=== PATIENT | female | born 1950 | race Caucasian/White ===

== ENCOUNTER 2022-09-28 22:08 | Inpatient (IN) | payer MEDICAID ==
[~2022-09-28] VITALS: Ht 170.2 cm; Wt 85.7 kg
--- NOTE | 2022-09-28 22:25 | NUR ---
BIBSELF C/O FEVER AND ABD DISCOMFORT. PATIENT IS AOX4. AMBULATORY. ABLE TO MAKE NEEDS KNOWN. PLACED COMFORTABLY IN BED.
--- NOTE | 2022-09-28 22:30 | NUR ---
CHANGE ROOM ATTENDANT AT BEDSIDE
--- NOTE | 2022-09-28 22:34 | NUR ---
COVID AND INFLUENZA SWAB DONE AND SENT TO LAB
--- NOTE | 2022-09-28 22:35 | NUR ---
URINE SPECIMEN SENT TO LAB
--- NOTE | 2022-09-28 22:36 | NUR ---
BROUGHT TO CT DEPT
--- NOTE | 2022-09-28 22:51 | NUR ---
PATIENT RETURNED TO ROOM FROM CT
[2022-09-28 23:05] LABS: BASOPHILS # (AUTO) 0.1 K/uL (0.0-0.2); BASOPHILS % (AUTO) 0.5 % (0.0-2.0); EOSINOPHILS % (AUTO) 0.5 % (0.0-6.0); HEMATOCRIT 38 % (33-45); HEMOGLOBIN 12.3 g/dL (11.5-14.8); LYMPHOCYTES % (AUTO) 7.1 % (20.0-44.0); MEAN CORPUSCULAR HGB CONC 32 g/dl (31.0-36.0); MEAN CORPUSCULAR VOLUME 88 fL (82-100); MONOCYTES # (AUTO) 1.1 K/uL (0.1-1.30); MONOCYTES % (AUTO) 7.5 % (2.0-12.0); NEUTROPHILS # (AUTO) 12.3 K/uL (1.8-8.9); NEUTROPHILS % (AUTO) 84.4 % (43.0-81.0); PLATELET COUNT (AUTO) 241 K/uL (150-450); RED BLOOD CELL COUNT(AUTO) 4.37 MIL/uL (4.0-5.2); WHITE BLOOD COUNT (AUTO) 14.6 K/uL (4.3-11.0)
[2022-09-28 23:10] LABS: BILIRUBIN,URINE NEGATIVE (NEGATIVE); COLOR,URINE YELLOW (YELLOW); LEUKOCYTE ESTERASE ,URINE 1+ (NEGATIVE); NITRITE, URINE NEGATIVE (NEGATIVE); PH,URINE 5.5 (5.0-8.0); PROTEIN,URINE 1+ mg/dl (NEGATIVE); UGLUCOSE NEGATIVE (NEGATIVE)
[2022-09-28 23:26] LABS: ALANINE AMINOTRANSFERASE 121 U/L (12-78); ALBUMIN 2.5 g/dL (3.4-5.0); ALKALINE PHOSPHATASE 200 U/L (46-116); ASPARTATE AMINOTRANSFERASE 63 U/L (15-37); BILIRUBIN,DIRECT 0.3 mg/dL (0.0-0.2); BILIRUBIN,TOTAL 0.7 mg/dL (0.2-1.0); CALCIUM, SERUM 9.7 mg/dL (8.5-10.1); CARBON DIOXIDE 23 mmol/L (21-32); CHLORIDE 100 mmol/L (98-107); CREATININE 1.3 mg/dL (0.6-1.3); GLUCOSE 178 mg/dL (74-106); LIPASE 128 U/L (73-393); POTASSIUM 3.5 mmol/L (3.5-5.1); SODIUM SERUM 135 mmol/L (136-145); TOTAL PROTEIN, SERUM 7.8 g/dL (6.4-8.2); UREA NITROGEN, BLOOD 21 mg/dL (7-18)
--- NOTE | 2022-09-28 23:40 | NUR ---
US TECH AT BEDSIDE
[2022-09-28 23:44] LABS: BACTERIA,URINE 2+ /HPF (None Seen); RBC,URINE NONE SEEN /HPF (0-2)
[2022-09-28 23:45] LABS: HYALINE CASTS, URINE Few /LPF (None Seen); MUCUS,URINE Few /LPF (None Seen)
[2022-09-29 01:33] LABS: EOSINOPHILS % (MANUAL) 1 % (0-4); LYMPHOCYTES % (MANUAL) 8 % (16-48); MONOCYTES % (MANUAL) 8 % (0-11.0); NEUTROPHILS % (MANUAL) 83 (42-76)
--- NOTE | 2022-09-29 04:21 | NUR ---
RAC 20G ESTABLISHED, CONVERTED TO SALINE LOCK
[2022-09-29] MEDS ORDERED: CIPROFLOXACIN IV RTU 200 ML IV ONE (04:25)
[2022-09-29] MEDS ORDERED: FLAGYL/NS RTU 500 MG/100 ML PIGGYBACK IV ONE (04:30)
[2022-09-29] MEDS: CIPROFLOXACIN IV RTU 400 MG in PREMIX 1 EA IV SCH ×2 (04:30→16:08)
--- NOTE | 2022-09-29 04:31 | NUR ---
DR CRUZ ON THE PHONE WITH DR JARRELL, GEN SURG
[2022-09-29] MEDS ORDERED: METRONIDAZOLE 500MG/ NS 100ML 100 ML IV ONE (05:15)
[2022-09-29] MEDS ORDERED: MAG HYDROX/AL HYDROX/SIMETH 30 ML UDC PO PRN (05:30)
[2022-09-29] MEDS ORDERED: ONDANSETRON HCL/PF 4 MG/2 ML VIAL IVP PRN (05:30)
[2022-09-29] MEDS ORDERED: MORPHINE SULFATE INJ 2 MG/ML DISP.SYRIN IV PRN (05:30)
[2022-09-29] MEDS ORDERED: IV D5/0.45 NACL 1,000 ML IV PRN (05:30)
[2022-09-29] MEDS ORDERED: Z GUARD REMEDY 4 OZ OINT TP PRN (05:30)
[2022-09-29] MEDS ORDERED: MAGNESIUM HYDROXIDE 30 ML UDC PO PRN (05:30)
[2022-09-29] MEDS ORDERED: ZOSYN IVPB 3.375 G in IV D5W 50ml IV ONE (07:00)
--- NOTE | 2022-09-29 07:33 | NUR ---
REPORT GIVEN TO JILLIAN MARTÍNEZ FOR MASON
[2022-09-29 08:00] VITALS: BP 153/79; TEMP 98; O2SAT 92
--- NOTE | 2022-09-29 08:00 | NUR ---
ADMITTED PT FROM ER. PT ALERT, AND ORIENTED X 4, COOK ISLANDER SPEAKING, COOPERATIVE, ACCOMPANIED BY SON. PT AMBULATORY WITH ASSISTANCE, BPR, IV ACCESS RIGHT AC 20G. NPO AT THIS TIME, R/O ACUTE CHOLECYSTITIS, IV FLUID D5 1/2 NS AT 75ML/HR
[2022-09-29] MEDS ORDERED: PANTOPRAZOLE 40 MG VIAL IV SCH (09:00)
--- NOTE | 2022-09-29 10:27 | NUR ---
D5 1/2NS D/C. PT ON NS AT 75 ML/HR.
[2022-09-29] MEDS: IV NS 0.9% 1,000 ML IV SCH ×2 (11:27→23:51)
[2022-09-29] MEDS: ZOSYN IVPB 2.25 G in IV D5W 50ml IV SCH ×2 (12:42→18:28)
[2022-09-29] MEDS ORDERED: METO25TA4 PO (13:34)
[2022-09-29] MEDS ORDERED: CHOL100043 PO (13:34)
[2022-09-29] MEDS ORDERED: METH10TA7 PO (13:34)
[2022-09-29] MEDS ORDERED: LOSARTAN-HCTZ PO (13:34)
--- NOTE | 2022-09-29 19:03 | NUR ---
RN CLOSING NOTE PATIENT RESTING IN BED. IN NO ACUTE DISTRESS OBSERVED. RESPIRATORY EVEN AND UNLABORED ON ROOM AIR, NO SOB OR DESATURATION NOTED. SKIN IS WARM TO TOUCH KEEP CLEAN/DRY. LOWEST BED POSITION. BED ALARM IS ON AT ALL THE TIME FOR SAFETY. CALL LIGHT WITHIN REACH, WILL ENDORSE SWIM INSTRUCTOR.
--- NOTE | 2022-09-29 19:30 | NUR ---
MS RN OPENING NOTE RECEIVED PATIENT FROM AM NURSE; PATIENT AWAKE IN BED, A/O X 4, HUNGARIAN SPEAKING BUT CAN UNDERSTAND LITTLE [place], ABLE TO MAKE NEEDS KNOWN; STABLE ON ROOM AIR, BREATHING EVENLY AND NO S/S OF DISTRESS NOTED; AMBULATORY WITH ASSISTANCE; WITH IV ACCESS AT RIGHT AC G#20 RUNNING WITH NORMAL SALINE AT 45 ML/HR; ENCOURAGED VERBALIZATION OF NEEDS; SAFETY MEASURES IMPLEMENTED, BED LOCKED IN LOWEST POSITION, SIDE RAILS UP X 2, CALL LIGHT AND TABLE WITHIN REACH, ADVISED TO USE CALL LIGHT IF NEEDS ANYTHING; WILL CONTINUE TO MONITOR THROUGHOUT SHIFT
[2022-09-29 20:00] VITALS: BP 115/64; TEMP 98.8; O2SAT 99
[2022-09-30] MEDS: ZOSYN IVPB 2.25 G in IV D5W 50ml IV SCH ×2 (00:35→06:25)
[2022-09-30 04:00] VITALS: BP 123/62; TEMP 98.5; O2SAT 100
[2022-09-30 05:56] LABS: BASOPHILS % (AUTO) 0.2 % (0.0-2.0); HEMATOCRIT 32 % (33-45); HEMOGLOBIN 10.7 g/dL (11.5-14.8); LYMPHOCYTES # (AUTO) 1.2 K/uL (0.8-4.8); LYMPHOCYTES % (AUTO) 8.1 % (20.0-44.0); MEAN CORPUSCULAR HGB CONC 34 g/dl (31.0-36.0); MEAN CORPUSCULAR VOLUME 86 fL (82-100); MONOCYTES # (AUTO) 2.2 K/uL (0.1-1.30); MONOCYTES % (AUTO) 14.6 % (2.0-12.0); NEUTROPHILS # (AUTO) 11.5 K/uL (1.8-8.9); NEUTROPHILS % (AUTO) 77.1 % (43.0-81.0); PLATELET COUNT (AUTO) 229 K/uL (150-450)
[2022-09-30 06:19] LABS: BILIRUBIN,DIRECT 0.5 mg/dL (0.0-0.2); BILIRUBIN,TOTAL 1.3 mg/dL (0.2-1.0); CALCIUM, SERUM 8.1 mg/dL (8.5-10.1); PHOSPHORUS 2.5 mg/dL (2.5-4.9); POTASSIUM 3.3 mmol/L (3.5-5.1); TOTAL PROTEIN, SERUM 6.5 g/dL (6.4-8.2)
--- NOTE | 2022-09-30 06:49 | NUR ---
MS RN CLOSING NOTE PATIENT RESTING IN BED, A/O X 4, BRITISH SPEAKING BUT CAN UNDERSTAND LITTLE INDONESIAN, ABLE TO MAKE NEEDS KNOWN; STABLE ON ROOM AIR, BREATHING EVENLY AND NO S/S OF DISTRESS NOTED; AMBULATORY WITH ASSISTANCE; WITH IV ACCESS AT RIGHT AC G#20 RUNNING WITH NORMAL SALINE AT 75 ML/HR; ADMINISTERED MEDICATIONS PRESCRIBED; NEEDS ATTENDED; NO COMPLAINTS OF PAIN AND DISCOMFORT AT THIS TIME; SAFETY MEASURES IMPLEMENTED, BED LOCKED IN LOWEST POSITION, SIDE RAILS UP X 2, CALL LIGHT AND TABLE WITHIN REACH, ADVISED TO USE CALL LIGHT IF NEEDED; WILL ENDORSE TO AM NURSE FOR [place].
--- NOTE | 2022-09-30 07:00 | NUR ---
WOOD CASKET ASSEMBLER OPENING NOTE PATIENT AWAKE ,ALERT AND ORIENTED X3. DENIES PAIN AT PRESENT, 02 SAT IN ROOM AIR 95%, NO S/S OF RESPIRATORY DISTRESS NOTED. IV ACCESS TO RIGHT AC G#20 INFUSING NS AT 45ML/HR. MOVE ALL EXT. WITHOUT DIFFICULTY. SAFETY MEASURES IN PLACE: BED LOCKED TO THE LOWEST POSITION, CALL LIGHT AND TABLE WITHIN REACH. CONT. TO MONITOR
[2022-09-30] MEDS: PANTOPRAZOLE 40 MG/PACK PACK PO SCH (08:49)
[2022-09-30] MEDS ORDERED: POTASSIUM CHLORIDE 20 MEQ POWDER PACKET PO ONE (11:00)
[2022-09-30] MEDS: CEFTRIAXONE 1 G in IV D5W 50 ML IV SCH (11:29)
[2022-09-30 12:00] VITALS: BP 133/71; TEMP 98.5; O2SAT 100
[2022-09-30] MEDS: IV NS 0.9% 1,000 ML IV SCH (13:26)
--- NOTE | 2022-09-30 18:45 | NUR ---
FABRIC NORMALIZER CLOSING NOTE PATIENT AWAKE, ALERT AND ORIENTED X4. DENIES PAIN, ON ROOM AIR 96% SAT, NO RESPIRATORY DISTRESS NOTED. IV AT RAC INTACT INFUSING NS AT 75ML/HR. AMBULATORY, GAIT STEADY NOTED. SAFETY MEASURES IN PLACE, BED LOCKED TO THE LOWEST POSITION, CALL LIGHT AND TABLE WITHIN REACH. I WILL ENDORSE TO THE FOLLOWING NURSE FOR CONT. OF CARE.
--- NOTE | 2022-09-30 19:50 | NUR ---
MS RN OPENING NOTE RECEIVED PATIENT FROM AM NURSE; PATIENT AWAKE IN BED, A/O X 4, ANDORRAN SPEAKING BUT CAN UNDERSTAND LITTLE [place], ABLE TO MAKE NEEDS KNOWN; STABLE ON ROOM AIR, BREATHING EVENLY AND NO S/S OF DISTRESS NOTED; AMBULATORY WITH ASSISTANCE; WITH IV ACCESS AT RIGHT AC G#20 RUNNING WITH NORMAL SALINE AT 45 ML/HR; ENCOURAGED VERBALIZATION OF NEEDS; SAFETY MEASURES IMPLEMENTED, BED LOCKED IN LOWEST POSITION, SIDE RAILS UP X 2, CALL LIGHT AND TABLE WITHIN REACH, ADVISED TO USE CALL LIGHT IF NEEDS ANYTHING; WILL CONTINUE TO MONITOR THROUGHOUT SHIFT
[2022-09-30 20:00] VITALS: BP 137/67; TEMP 98.6; O2SAT 100
[2022-10-01] MEDS: ZOLPIDEM TARTRATE 5 MG TABLET PO PRN (01:00)
[2022-10-01] MEDS: ACETAMINOPHEN 325 MG TABLET PO PRN ×2 (01:17→19:30)
--- NOTE | 2022-10-01 01:22 | NUR ---
RN NOTES UPON ROUNDS PATIENT IS WARM TO TOUCH AND WITH TEMPERATURE OF 101.4 TYLENOL 650 MG GIVEN. WILL CONTINUE TO MONITOR
[2022-10-01 04:00] VITALS: BP 113/64; TEMP 97.8; O2SAT 100
[2022-10-01] MEDS: IV NS 0.9% 1,000 ML IV SCH ×2 (04:59→15:28)
--- NOTE | 2022-10-01 06:35 | NUR ---
MS RN CLOSING NOTE PATIENT RESTING IN BED, A/O X 4, ITALIAN SPEAKING BUT CAN UNDERSTAND LITTLE WELSH, ABLE TO MAKE NEEDS KNOWN; STABLE ON ROOM AIR, BREATHING EVENLY AND NO S/S OF DISTRESS NOTED; AMBULATORY WITH ASSISTANCE; WITH IV ACCESS AT RIGHT AC G#20 RUNNING WITH NORMAL SALINE AT 75 ML/HR; ADMINISTERED MEDICATIONS PRESCRIBED; NEEDS ATTENDED; NO COMPLAINTS OF PAIN AND DISCOMFORT AT THIS TIME; SAFETY MEASURES IMPLEMENTED,PM CARE RENDERED, BED LOCKED IN LOWEST POSITION, SIDE RAILS UP X 2, CALL LIGHT AND TABLE WITHIN REACH, ADVISED TO USE CALL LIGHT IF NEEDED; WILL ENDORSE TO AM NURSE FOR [place].
[2022-10-01 07:47] LABS: BASOPHILS % (AUTO) 0.1 % (0.0-2.0); EOSINOPHILS % (AUTO) 0.1 % (0.0-6.0); HEMATOCRIT 33 % (33-45); HEMOGLOBIN 10.8 g/dL (11.5-14.8); LYMPHOCYTES # (AUTO) 1.3 K/uL (0.8-4.8); LYMPHOCYTES % (AUTO) 9.6 % (20.0-44.0); MEAN CORPUSCULAR HGB CONC 32 g/dl (31.0-36.0); MEAN CORPUSCULAR VOLUME 88 fL (82-100); MONOCYTES # (AUTO) 1.3 K/uL (0.1-1.30); MONOCYTES % (AUTO) 9.7 % (2.0-12.0); NEUTROPHILS # (AUTO) 10.8 K/uL (1.8-8.9); NEUTROPHILS % (AUTO) 80.5 % (43.0-81.0); PLATELET COUNT (AUTO) 210 K/uL (150-450); RED BLOOD CELL COUNT(AUTO) 3.82 MIL/uL (4.0-5.2); WHITE BLOOD COUNT (AUTO) 13.4 K/uL (4.3-11.0)
[2022-10-01 07:56] LABS: POTASSIUM 3.8 mmol/L (3.5-5.1)
--- NOTE | 2022-10-01 08:19 | NUR ---
MS RN OPENING NOTE Received patient in bed, awake. A/O x 4, able to make needs known. On room air, tolerating well. IV access in the RAC #20g with ongoing NS at 75ml/hr, infusing well. Safety measures maintained: bed in lowest locked position, side rails up x 2, call light and tray table within easy reach. Will continue to monitor.
[2022-10-01 08:26] LABS: ALANINE AMINOTRANSFERASE 69 U/L (12-78); ALBUMIN 1.9 g/dL (3.4-5.0); ALKALINE PHOSPHATASE 123 U/L (46-116); ASPARTATE AMINOTRANSFERASE 47 U/L (15-37); BILIRUBIN,DIRECT 0.5 mg/dL (0.0-0.2); BILIRUBIN,TOTAL 1.2 mg/dL (0.2-1.0); CALCIUM, SERUM 8.1 mg/dL (8.5-10.1); CARBON DIOXIDE 26 mmol/L (21-32); CHLORIDE 105 mmol/L (98-107); CREATININE 0.9 mg/dL (0.6-1.3); GLUCOSE 123 mg/dL (74-106); MAGNESIUM 2.2 mg/dL (1.8-2.4); POTASSIUM 3.8 mmol/L (3.5-5.1); SODIUM SERUM 138 mmol/L (136-145); TOTAL PROTEIN, SERUM 6.6 g/dL (6.4-8.2); UREA NITROGEN, BLOOD 12 mg/dL (7-18)
[2022-10-01] MEDS: PANTOPRAZOLE 40 MG/PACK PACK PO SCH (09:23)
[2022-10-01 12:00] VITALS: BP 127/71; TEMP 98.3; O2SAT 96
[2022-10-01] MEDS: CEFTRIAXONE 1 G in IV D5W 50 ML IV SCH (12:07)
--- NOTE | 2022-10-01 18:53 | NUR ---
MS RN CLOSING NOTE Patient resting in bed, with relative at bedside. A/O x 4, no c/o pain/discomfort within the shift. On room air, tolerating well. IV access in the RAC #20g with ongoing NS at 75ml/hr, infusing well. Needs attended. Safety measures maintained: bed in lowest locked position, side rails up x 2, call light and tray table within easy reach. Will endorse rosalia to shift commander.
--- NOTE | 2022-10-01 19:35 | NUR ---
MS RN OPENING NOTE RECEIVED PATIENT IN BED, WITH HOB ELEVATED, ALERT AND ORIENTED X4, WITH FAMILY AT BEDSIDE. AFEBRILE AND NOT IN ANY FORM OF ACUTE DISTRESS. BREATHING EVEN AND NON LABORED. WITH IV ACCESS ON RAC 20G RUNNING WITH NS AT 75ML/HR. S/E BY SENIOR TECHNICAL MANAGER MARCELO AND ORDERED TO D/C IV FLUIDS, ORDER NOTED AND CARRIED OUT. PATIENT ALSO WAS GIVEN TYLENOL FOR HEADACHE 05/23. SAFETY MEASURES IN PLACE. KEPT BED IN LOCKED AND IN LOW POSITION. SIDE RAILS UP X2. ADVISED TO USE THE CALL LIGHT WHEN IN NEED OF ASSISTANCE.
[2022-10-01 20:00] VITALS: BP 121/77; TEMP 98.5; O2SAT 95
[2022-10-01] MEDS ORDERED: IBUPROFEN 400 MG TABLET PO ONE (20:00)
[2022-10-01] MEDS ORDERED: ZOLPIDEM TARTRATE 5 MG TABLET PO ONE (22:00)
[2022-10-02 04:00] VITALS: BP 129/67; TEMP 97.7; O2SAT 97
[2022-10-02 05:52] LABS: BASOPHILS % (AUTO) 0.3 % (0.0-2.0); EOSINOPHILS % (AUTO) 0.5 % (0.0-6.0); HEMATOCRIT 33 % (33-45); HEMOGLOBIN 10.8 g/dL (11.5-14.8); LYMPHOCYTES # (AUTO) 1.2 K/uL (0.8-4.8); LYMPHOCYTES % (AUTO) 9.7 % (20.0-44.0); MEAN CORPUSCULAR HGB CONC 33 g/dl (31.0-36.0); MEAN CORPUSCULAR VOLUME 88 fL (82-100); MONOCYTES # (AUTO) 1.1 K/uL (0.1-1.30); MONOCYTES % (AUTO) 8.3 % (2.0-12.0); NEUTROPHILS # (AUTO) 10.3 K/uL (1.8-8.9); NEUTROPHILS % (AUTO) 81.2 % (43.0-81.0); PLATELET COUNT (AUTO) 209 K/uL (150-450); RED BLOOD CELL COUNT(AUTO) 3.75 MIL/uL (4.0-5.2); WHITE BLOOD COUNT (AUTO) 12.6 K/uL (4.3-11.0)
[2022-10-02 06:27] LABS: ALBUMIN 1.9 g/dL (3.4-5.0); BILIRUBIN,DIRECT 0.4 mg/dL (0.0-0.2); BILIRUBIN,TOTAL 1.1 mg/dL (0.2-1.0); CALCIUM, SERUM 8.5 mg/dL (8.5-10.1); CREATININE 0.9 mg/dL (0.6-1.3); MAGNESIUM 2.4 mg/dL (1.8-2.4); PHOSPHORUS 3.1 mg/dL (2.5-4.9); POTASSIUM 3.3 mmol/L (3.5-5.1); TOTAL PROTEIN, SERUM 6.7 g/dL (6.4-8.2)
--- NOTE | 2022-10-02 06:30 | NUR ---
MS RN CLOSING NOTE PATIENT IN BED, WITH HOB ELEVATED, ALSEEP BUT EASY TO AROUSE AND RESPONSIVE. ABLE TO MAKE NEEDS KNOWN. AFEBRILE AND NOT IN ANY FORM OF ACUTE DISTRESS. BREATHING EVEN AND NON LABORED. WITH IV ACCESS ON RAC 20G -SL. MEDICATED ORDERED. SAFETY MEASURES IN PLACE. KEPT BED IN LOCKED AND IN LOW POSITION. SIDE RAILS UP X2. ADVISED TO USE THE CALL LIGHT WHEN IN NEED OF ASSISTANCE. ALL NURSING NEEDS ATTENDED. ENDORSED TO INCOMING SHIFT FOR CONTINUITY OF CARE.
--- NOTE | 2022-10-02 07:00 | NUR ---
RN OPENING NOTE RECEIVED PATIENT IN BED, ALERT AND ORIENTED X4, BREATHING EVEN,ON RA, NO SOB, IV ACCESS RAC. SAFETY MEASURES IN PLACE. KEPT BED IN LOCKED AND IN LOW POSITION. SIDE RAILS UP X2. CALL LIGHT WITHIN REACH, WILL CONTINUE TO MONITOR.
[2022-10-02] MEDS: PANTOPRAZOLE 40 MG/PACK PACK PO SCH (08:01)
[2022-10-02] MEDS ORDERED: POTASSIUM CHLORIDE 20 MEQ TAB.PRT.SR PO SCH (10:00)
[2022-10-02] MEDS: CEFTRIAXONE 1 G in IV D5W 50 ML IV SCH (11:35)
[2022-10-02 12:00] VITALS: BP 135/60; TEMP 98.5; O2SAT 99
[2022-10-02] MEDS ORDERED: FUROSEMIDE 40 MG/4 ML VIAL IV ONE (12:00)
[2022-10-02] MEDS: METHIMAZOLE (5MG) 5 MG TABLET PO SCH (16:25)
--- NOTE | 2022-10-02 19:00 | NUR ---
TURNTABLE WORKER OPENING NOTE RECEIVED PATIENT IN BED, WITH HOB ELEVATED, ALERT AND ORIENTED X4, WITH FAMILY AT BEDSIDE. AFEBRILE AND NOT IN ANY FORM OF ACUTE DISTRESS. BREATHING EVEN AND NON LABORED. WITH IV ACCESS ON RAC 20G, SAFETY MEASURES IN PLACE. KEPT BED IN LOCKED AND IN LOW POSITION. SIDE RAILS UP X2. ADVISED TO USE THE CALL LIGHT WHEN IN NEED OF ASSISTANCE.
[2022-10-02] MEDS: ACETAMINOPHEN 325 MG TABLET PO PRN (19:01)
--- NOTE | 2022-10-02 19:18 | NUR ---
RN CLOSING NOTE PATIENT IN BED, ALERT AND ORIENTED X4, FAMILY AT BEDSIDE. BREATHING EVEN,ON RA, NO SOB, IV ACCESS RAC. SAFETY MEASURES IN PLACE. KEPT BED IN LOCKED AND IN LOW POSITION. SIDE RAILS UP X2. CALL LIGHT WITHIN REACH, WILL ENDORSE TO THE FORMULATOR NURSE FOR MASON.
[2022-10-02 20:00] VITALS: BP 124/69; TEMP 101.4; O2SAT 95
--- NOTE | 2022-10-02 21:00 | NUR ---
Urine sample collected for urine cx via clean catch method
[2022-10-02] MEDS: PIPERACILLIN /TAZOBACTAM 3.375 G in IV D5W 100 ML IV SCH (21:43)
[2022-10-02] MEDS: METOPROLOL SUCCINATE 25 MG TAB.SR.24H PO SCH (21:54)
[2022-10-03] VITALS: BP 124/69; TEMP 98.9; O2SAT 95
[2022-10-03] MEDS ORDERED: PIPERACILLIN /TAZOBACTAM 3.375 G in IV D5W 50 ML IV SCH ×2
[2022-10-03 04:00] VITALS: BP 120/70; TEMP 98.9; O2SAT 96
[2022-10-03] MEDS: PIPERACILLIN /TAZOBACTAM 3.375 G in IV D5W 100 ML IV SCH ×3 (05:22→21:40)
[2022-10-03] MEDS: ACETAMINOPHEN 325 MG TABLET PO PRN ×2 (05:45→20:23)
[2022-10-03 05:51] LABS: BASOPHILS % (AUTO) 0.1 % (0.0-2.0); EOSINOPHILS % (AUTO) 0.1 % (0.0-6.0); HEMATOCRIT 30 % (33-45); HEMOGLOBIN 9.8 g/dL (11.5-14.8); LYMPHOCYTES # (AUTO) 0.9 K/uL (0.8-4.8); LYMPHOCYTES % (AUTO) 8.2 % (20.0-44.0); MEAN CORPUSCULAR HGB CONC 33 g/dl (31.0-36.0); MEAN CORPUSCULAR VOLUME 87 fL (82-100); MONOCYTES # (AUTO) 0.9 K/uL (0.1-1.30); MONOCYTES % (AUTO) 8.1 % (2.0-12.0); NEUTROPHILS # (AUTO) 9.3 K/uL (1.8-8.9); NEUTROPHILS % (AUTO) 83.5 % (43.0-81.0); PLATELET COUNT (AUTO) 282 K/uL (150-450); RED BLOOD CELL COUNT(AUTO) 3.43 MIL/uL (4.0-5.2); WHITE BLOOD COUNT (AUTO) 11.2 K/uL (4.3-11.0)
[2022-10-03 06:23] LABS: ALBUMIN 1.8 g/dL (3.4-5.0); BILIRUBIN,TOTAL 0.8 mg/dL (0.2-1.0); CALCIUM, SERUM 8.3 mg/dL (8.5-10.1); CREATININE 0.8 mg/dL (0.6-1.3); PHOSPHORUS 2.8 mg/dL (2.5-4.9); POTASSIUM 3.6 mmol/L (3.5-5.1); TOTAL PROTEIN, SERUM 6.4 g/dL (6.4-8.2)
--- NOTE | 2022-10-03 06:38 | NUR ---
EDUCATIONAL SIGN LANGUAGE INTERPRETER CLOSING NOTE PATIENT IN BED, ALERT AND ORIENTED X4. BREATHING EVEN,ON RA, NO SOB, IV ACCESS RAC. ALL DUE MEDS GIVEN PER MD ORDERS TOLERATED WELL, ALL BASIC NEEDS MET AND ANTICIPATED, SAFETY MEASURES IN PLACE. KEPT BED IN LOCKED AND IN LOW POSITION. SIDE RAILS UP X2. CALL LIGHT WITHIN REACH, WILL CONTINUE TO MONITOR
--- NOTE | 2022-10-03 07:05 | NUR ---
RN OPENING NOTE RECEIVED PATIENT IN BED, ASLEEP, BREATHING EVEN,ON RA, NO SOB, IV ACCESS RAC. SAFETY MEASURES IN PLACE. KEPT BED IN LOCKED AND IN LOW POSITION. SIDE RAILS UP X2. CALL LIGHT WITHIN REACH, WILL CONTINUE TO MONITOR.
[2022-10-03 08:00] VITALS: BP 132/70; TEMP 98.7; O2SAT 96
[2022-10-03] MEDS: METHIMAZOLE (5MG) 5 MG TABLET PO SCH (09:07)
[2022-10-03] MEDS: LOSARTAN POTASSIUM 50 MG TABLET PO SCH (09:07)
[2022-10-03] MEDS: CHOLECALCIFEROL (VITAMIN D 3) 400 UNIT TABLET PO SCH (09:07)
[2022-10-03] MEDS: PANTOPRAZOLE 40 MG/PACK PACK PO SCH (09:07)
[2022-10-03] MEDS: PROSOURCE / PROSTAT (PYXIS) 30 ML UDC PO SCH ×3 (09:08→16:03)
[2022-10-03 09:31] LABS: THYROID STIMULATING HORMONE 0.11 uIU/mL (0.358-3.74)
[2022-10-03] MEDS ORDERED: LACTULOSE 10 G/15 ML UDC (PYXIS) PO ONE (12:00)
[2022-10-03] MEDS ORDERED: NA PHOS,M-B/NA PHOS,DI-BA 1 EA ENEMA RC PRN (12:00)
[2022-10-03] MEDS: SORBITOL SOLUTION 70% 30 ML SOLUTION PO SCH (12:57)
[2022-10-03 16:00] VITALS: BP 117/67; TEMP 98.9; O2SAT 96
--- NOTE | 2022-10-03 19:09 | NUR ---
RN CLOSING NOTE PATIENT IN BED, ALERT AND ORIENTED X4. BREATHING EVEN,ON RA, NO SOB, IV ACCESS RAC. FAMILY AT BEDSIDE. ALL DUE MEDS GIVEN PER MD ORDERS TOLERATED WELL, ALL BASIC NEEDS MET AND ANTICIPATED, SAFETY MEASURES IN PLACE. KEPT BED IN LOCKED AND IN LOW POSITION. SIDE RAILS UP X2. CALL LIGHT WITHIN REACH, WILL CONTINUE TO MONITOR
--- NOTE | 2022-10-03 19:11 | NUR ---
RN NOTE RECEIVED PT FOR CONTINUITY OF CARE. PATIENT A/OX4 IN NO S/SX OF ACUTE DISTRESS AT THIS TIME; CURRENTLY ON ROOM AIR; WITH 02 SAT >95% AT THIS TIME.WITH IV ACCESS PATENT, INTACT AND FLUSHING WELL. WILL ENSURE SAFETY MEASURES WITHIN THE SHIFT. PATIENT BED ALARM IS ON. HEAD OF BED ELEVATED. BED IS LOCKED, IN LOWEST POSITION AND SIDE RAILS UP. CALL LIGHT WITHIN REACH OF THE PATIENT. WILL CONTINUE TO MONITOR AND REASSESS FOR ANY CHANGES AND WILL CARRY OUT ANY ONGOING AND ACTIVE MD ORDER.
[2022-10-03 20:00] VITALS: BP 120/67; TEMP 102; O2SAT 96
[2022-10-03] MEDS: METOPROLOL SUCCINATE 25 MG TAB.SR.24H PO SCH (21:41)
[2022-10-03 22:00] VITALS: TEMP 99; O2SAT 96
[2022-10-04 04:00] VITALS: BP 118/72; TEMP 98.1; O2SAT 95
[2022-10-04] MEDS: PIPERACILLIN /TAZOBACTAM 3.375 G in IV D5W 100 ML IV SCH ×2 (05:08→13:11)
[2022-10-04 06:10] LABS: ALBUMIN 1.9 g/dL (3.4-5.0); BILIRUBIN,DIRECT 0.5 mg/dL (0.0-0.2); BILIRUBIN,TOTAL 1.3 mg/dL (0.2-1.0); TOTAL PROTEIN, SERUM 6.6 g/dL (6.4-8.2)
--- NOTE | 2022-10-04 06:49 | NUR ---
RN NOTE PATIENT REMAINS IN ROOM IN NO SIGNS OF RESPIRATORY DISTRESS, PATIENT STILL ON ROOM AIR ;TOLERATING WELL SATURATING @ >95% SP02. ON SOFT DIET. MED SURG STATUS. SAFETY MEASURES IMPLEMENTED, BED IN LOWEST POSITION, LOCKED, SIDE RAILS UP, CALL LIGHT WITHIN REACH. ALL NEEDS AND ORDERS ADDRESSED DURING THE SHIFT. IV ACCESS MAINTAINED INTACT, SECURED AND FLUSHING WELL. ALL DUE MEDS GIVEN ORDERED & SCHEDULED ; PATIENT TOLERATED WELL. PATIENT KEPT CLEAN AND COMFORTABLE WITHIN THE SHIFT. PATIENT ENDORSED TO INCOMING SHIFT RN WITH STABLE VITAL SIGN AND FOR CONTINUITY OF CARE.
--- NOTE | 2022-10-04 07:30 | NUR ---
MS RN OPENING NOTE RECEIVED PT FOR CONTINUITY OF CARE. PATIENT A/OX4 IN NO S/SX OF ACUTE DISTRESS AT THIS TIME; CURRENTLY ON ROOM AIR; WITH 02 SAT >95% AT THIS TIME.WITH IV ACCESS PATENT, INTACT AND FLUSHING WELL. PATIENT BED ALARM IS ON. HEAD OF BED ELEVATED. BED IS LOCKED, IN LOWEST POSITION AND SIDE RAILS UP. CALL LIGHT WITHIN REACH OF THE PATIENT. WILL CONTINUE PLAN OF CARE.
[2022-10-04 08:00] VITALS: BP 133/65; TEMP 100.3; O2SAT 95
[2022-10-04] MEDS: PROSOURCE / PROSTAT (PYXIS) 30 ML UDC PO SCH ×3 (08:19→16:00)
[2022-10-04] MEDS: LOSARTAN POTASSIUM 50 MG TABLET PO SCH (08:30)
[2022-10-04] MEDS: PANTOPRAZOLE 40 MG/PACK PACK PO SCH (08:30)
[2022-10-04] MEDS: CHOLECALCIFEROL (VITAMIN D 3) 400 UNIT TABLET PO SCH (08:30)
[2022-10-04] MEDS: METHIMAZOLE (5MG) 5 MG TABLET PO SCH (08:30)
[2022-10-04] MEDS: SORBITOL SOLUTION 70% 30 ML SOLUTION PO SCH (08:32)
[2022-10-04] MEDS: ACETAMINOPHEN 325 MG TABLET PO PRN ×2 (08:32→19:54)
[2022-10-04 12:00] VITALS: BP 130/67; TEMP 98.7; O2SAT 96
--- NOTE | 2022-10-04 13:50 | NUR ---
PATIENT IS OUT FOR MRCP.
[2022-10-04 16:00] VITALS: BP 132/68; TEMP 98.7; O2SAT 97
--- NOTE | 2022-10-04 18:38 | NUR ---
MS RN CLOSING NOTE PATIENT AWAKE IN BED, FAMILY AT THE BEDSIDE. PATIENT A/OX4 IN NO S/SX OF ACUTE DISTRESS AT THIS TIME; CURRENTLY ON ROOM AIR; WITH 02 SAT >95% AT THIS TIME.WITH IV ACCESS PATENT, INTACT AND FLUSHING WELL. PATIENT BED ALARM IS ON. HEAD OF BED ELEVATED. BED IS LOCKED, IN LOWEST POSITION AND SIDE RAILS UP. CALL LIGHT WITHIN REACH OF THE PATIENT. WILL ENDORSE TO NIGHT NURSE FOR [facility]ON.
[2022-10-04 20:00] VITALS: BP 132/58; TEMP 100.3; O2SAT 100
[2022-10-04] MEDS ORDERED: ZOLPIDEM TARTRATE 5 MG TABLET PO PRN (20:00)
[2022-10-04 21:30] VITALS: TEMP 99.4; O2SAT 100
[2022-10-04] MEDS: METOPROLOL SUCCINATE 25 MG TAB.SR.24H PO SCH (22:24)
[2022-10-04] MEDS: ZOLPIDEM TARTRATE 5 MG TABLET PO PRN (22:24)
[2022-10-05 04:00] VITALS: BP 130/60; TEMP 99.3; O2SAT 100
[2022-10-05 06:07] LABS: BASOPHILS % (AUTO) 0.1 % (0.0-2.0); EOSINOPHILS % (AUTO) 0.3 % (0.0-6.0); HEMATOCRIT 31 % (33-45); HEMOGLOBIN 9.8 g/dL (11.5-14.8); LYMPHOCYTES # (AUTO) 0.9 K/uL (0.8-4.8); LYMPHOCYTES % (AUTO) 7.7 % (20.0-44.0); MEAN CORPUSCULAR HGB CONC 32 g/dl (31.0-36.0); MEAN CORPUSCULAR VOLUME 88 fL (82-100); MONOCYTES # (AUTO) 0.8 K/uL (0.1-1.30); MONOCYTES % (AUTO) 6.6 % (2.0-12.0); NEUTROPHILS # (AUTO) 9.8 K/uL (1.8-8.9); NEUTROPHILS % (AUTO) 85.3 % (43.0-81.0); PLATELET COUNT (AUTO) 372 K/uL (150-450); RED BLOOD CELL COUNT(AUTO) 3.46 MIL/uL (4.0-5.2); WHITE BLOOD COUNT (AUTO) 11.5 K/uL (4.3-11.0)
[2022-10-05 06:21] LABS: BILIRUBIN,DIRECT 0.5 mg/dL (0.0-0.2); BILIRUBIN,TOTAL 1.1 mg/dL (0.2-1.0); CALCIUM, SERUM 8.8 mg/dL (8.5-10.1); CREATININE 0.8 mg/dL (0.6-1.3); MAGNESIUM 2.4 mg/dL (1.8-2.4); PHOSPHORUS 2.7 mg/dL (2.5-4.9); POTASSIUM 3.6 mmol/L (3.5-5.1); TOTAL PROTEIN, SERUM 7.1 g/dL (6.4-8.2)
--- NOTE | 2022-10-05 07:15 | NUR ---
REPAIRER HELPER OPENING NOTES Received pt asleep in bed AOX4. No signs of pain or discomfort at this time. Pt is on RA and tolerating it well. IV access on RAC 20G patent and intact. HOB elevated to pts comfort. Siderails up at all times x3. Call light within reach. Will continue to monitor.
[2022-10-05 08:00] VITALS: BP 108/52; TEMP 99.4; O2SAT 98
[2022-10-05] MEDS: METHIMAZOLE (5MG) 5 MG TABLET PO SCH (08:36)
[2022-10-05] MEDS: SORBITOL SOLUTION 70% 30 ML SOLUTION PO SCH (08:36)
[2022-10-05] MEDS: LOSARTAN POTASSIUM 50 MG TABLET PO SCH (08:36)
[2022-10-05] MEDS: PANTOPRAZOLE 40 MG/PACK PACK PO SCH (08:36)
[2022-10-05] MEDS: PROSOURCE / PROSTAT (PYXIS) 30 ML UDC PO SCH ×3 (08:36→17:07)
[2022-10-05] MEDS: CHOLECALCIFEROL (VITAMIN D 3) 400 UNIT TABLET PO SCH (08:37)
[2022-10-05 16:00] VITALS: BP 130/58; TEMP 99.9; O2SAT 97
[2022-10-05] MEDS: ACETAMINOPHEN 325 MG TABLET PO PRN (17:35)
--- NOTE | 2022-10-05 17:52 | NUR ---
SATELLITE COMMUNICATIONS OPERATOR NOTES Made DEDRICK Pardo aware that family would not like any procedures done to the pt and would like to discharge the pt tomorrow to go to [facility] [place]. Pts son stated that he would drive her there after getting discharged. DEDRICK Pardo verbalized understanding and stated that she would have to review the pts chart before any discharging decisions can be made.
--- NOTE | 2022-10-05 18:34 | NUR ---
EFFICIENCY MANAGER CLOSING NOTES All due meds and tx given as ordered. Pt tolerated everything well. All needs attended to. Call light within reach. Will endorse to oncoming nurse.
[2022-10-05] MEDS: METOPROLOL SUCCINATE 25 MG TAB.SR.24H PO SCH (22:06)
[2022-10-05] MEDS: ZOLPIDEM TARTRATE 5 MG TABLET PO PRN (22:14)
[2022-10-06] VITALS: BP 110/46; TEMP 98.5; O2SAT 97
--- NOTE | 2022-10-06 07:20 | NUR ---
PT LEFT AMA WITH FAMILY, SIGNED AMA FORM AT THIS TIME, PERIPHERAL IV REMOVED, ALL BELONGING TAKEN WITH PT
[2022-10-06 07:23] LABS: BASOPHILS % (AUTO) 0.3 % (0.0-2.0); EOSINOPHILS % (AUTO) 0.3 % (0.0-6.0); HEMATOCRIT 28 % (33-45); HEMOGLOBIN 9.3 g/dL (11.5-14.8); LYMPHOCYTES # (AUTO) 0.8 K/uL (0.8-4.8); LYMPHOCYTES % (AUTO) 8.3 % (20.0-44.0); MEAN CORPUSCULAR HGB CONC 33 g/dl (31.0-36.0); MEAN CORPUSCULAR VOLUME 87 fL (82-100); MONOCYTES # (AUTO) 0.9 K/uL (0.1-1.30); MONOCYTES % (AUTO) 9.6 % (2.0-12.0); NEUTROPHILS # (AUTO) 7.9 K/uL (1.8-8.9); NEUTROPHILS % (AUTO) 81.5 % (43.0-81.0); PLATELET COUNT (AUTO) 396 K/uL (150-450); RED BLOOD CELL COUNT(AUTO) 3.25 MIL/uL (4.0-5.2); WHITE BLOOD COUNT (AUTO) 9.7 K/uL (4.3-11.0)
[2022-10-06 07:45] LABS: CALCIUM, SERUM 8.6 mg/dL (8.5-10.1); CREATININE 0.7 mg/dL (0.6-1.3); MAGNESIUM 2.6 mg/dL (1.8-2.4); PHOSPHORUS 2.4 mg/dL (2.5-4.9); POTASSIUM 4.4 mmol/L (3.5-5.1)
[2022-10-06 09:13] LABS: *SPE A/G RATIO 0.6 (0.7-1.7); *SPE ALPHA-1-GLOBULIN 0.5 g/dL (0.0-0.4); *SPE BETA GLOBULIN 0.7 g/dL (0.7-1.3); *SPE M-SPIKE Not Observed g/dL (Not Observed)
[2022-10-07 01:17] LABS: AFP, TUMOR MARKER <1.8 ng/mL (0.0-9.2); CARBOHYDRATE AG 19-9 5 U/mL (0-35)
== END 2022-10-06 07:25 | disposition left against medical advice (07) | DRG 281 ==
LOC: ER 22:12 → MEDSG1 09-29 06:26
PROVIDERS: ADMIT Internal Medicine; ATTEND Nurse Practitioner Acute Care
DX: C78.7 Secondary malignant neoplasm of liver and intrahepatic bile duct (principal); N17.0 Acute kidney failure with tubular necrosis; E43 Unspecified severe protein-calorie malnutrition; E87.20 Acidosis, unspecified; R65.10 Systemic inflammatory response syndrome (SIRS) of non-infectious origin without acute organ dysfunction; E87.1 Hypo-osmolality and hyponatremia; E88.09 Other disorders of plasma-protein metabolism, not elsewhere classified; J90 Pleural effusion, not elsewhere classified; E86.1 Hypovolemia; I11.0 Hypertensive heart disease with heart failure; I50.9 Heart failure, unspecified; E04.1 Nontoxic single thyroid nodule; E05.90 Thyrotoxicosis, unspecified without thyrotoxic crisis or storm; E87.6 Hypokalemia; Z20.822 Contact with and (suspected) exposure to COVID-19; N39.0 Urinary tract infection, site not specified; R53.1 Weakness; D50.9 Iron deficiency anemia, unspecified; R74.01 Elevation of levels of liver transaminase levels; I25.10 Atherosclerotic heart disease of native coronary artery without angina pectoris; I70.90 Unspecified atherosclerosis; E66.9 Obesity, unspecified; Z68.29 Body mass index [BMI] 29.0-29.9, adult; F41.9 Anxiety disorder, unspecified; K80.20 Calculus of gallbladder without cholecystitis without obstruction; K76.0 Fatty (change of) liver, not elsewhere classified; C80.1 Malignant (primary) neoplasm, unspecified; K59.00 Constipation, unspecified; R62.7 Adult failure to thrive
CPT/HCPCS: 36415; 71045-TC; 71250-TC; 74181-TC; 76536-TC; 76705-TC; 76770-TC; 78226; 80048-TC; 80053-TC; 80061-TC; 80076-TC; 81001; 82105; 82378; 82607-TC; 82728-TC; 83540-TC; 83690-TC; 83735-TC; 83880; 84100-TC; 84132-TC; 84155; 84165; 84295-TC; 84439-TC; 84443-TC; 84484-TC; 85025-TC; 85610-TC; 85730-TC; 86301; 86706; 86803; 87040-TC; 87081-TC; 87086-TC; 87340; 93307-TC; 97112-TC; 97116-TC; 97530-TC; A4216; A4223; A9537; C9113; C9803; G0378; J0696; J0744; J1940; J2543; J7030; J7050; J7060; J7120